=== PATIENT | female | born 1990 | race Caucasian/White ===

== ENCOUNTER 2018-04-29 18:05 | Emergency (ER) | payer OTHER ==
--- NOTE | 2018-04-29 18:32 | PDOC ---
Rapid Medical Evaluation Chief Complaint: Injury Time Seen by Provider: 04/29/18 18:30 Medical Evaluation: Allergies Allergy/AdvReac Type Severity Reaction Status Date / Time No Known Allergies Allergy Verified 01/01/12 18:21 04/29/18 18:31 I have performed a brief in-person evaluation of this patient. The patient presents with a chief complaint of: Right ankle pain s/p slip and fall downstairs Pertinent physical exam findings: ambulatory. No bony tenderness to foot/ankle/ knee I have ordered the following: xrays The patient will proceed to the ED for further evaluation. Discharge Disposition - Diagnosis Ankle pain, right - Referrals - Patient Instructions - Post Discharge Activity
[2018-04-29 18:40] VITALS: BP 102/57; PULSE 82; TEMP 98.6; BMI 24.8
--- NOTE | 2018-04-29 22:28 | PDOC ---
History of Present Illness - General Chief Complaint: Injury Stated Complaint: Injury Time Seen by Provider: 04/29/18 18:30 - History of Present Illness Initial Comments: 04/29/18 22:25 28-year-old female presents for right ankle pain after inversion type injury at work today. She points to the lateral aspect of the right ankle as the area of her discomfort. Past History - Past Medical History Allergies/Adverse Reactions: Allergies Allergy/AdvReac Type Severity Reaction Status Date / Time No Known Allergies Allergy Verified 01/01/12 18:21 Home Medications: Ambulatory Orders NK [No Known Home Medication] 04/29/18 Asthma: No Cancer: No Cardiac Disorders: No COPD: No Diabetes: No HTN: No Seizures: No Thyroid Disease: No - Immunization History Immunization Up to Date: No - Suicide/Smoking/Psychosocial Hx Smoking Status: No Smoking History: Never smoked Have you smoked in the past 12 months: No Number of Cigarettes Smoked Daily: 0 Information on smoking cessation initiated: No Hx Alcohol Use: No Drug/Substance Use Hx: No Hx Substance Use Treatment: No Review of Systems - Review of Systems Musculoskeletal: Yes: Joint Pain *Physical Exam - Vital Signs Last Vital Signs Temp Pulse Resp BP Pulse Ox 98.6 F 82 16 102/57 L 100 04/29/18 18:30 04/29/18 18:30 04/29/18 18:30 04/29/18 18:30 04/29/18 18:30 - Physical Exam Comments: 04/29/18 22:26 Mild ecchymosis about the anterior lateral aspect of the right ankle. No tenderness about the knee proximal fibula or along its distal coarse. Mild tenderness about the medial lateral malleolus ATFL navicular base of the fifth metatarsal which seems out of proportion to the examination. She is under to light touch. Decreased range of motion unable to tolerate stability testing. No gross sensorimotor deficits. She is neurovascularly intact. Moderate Sedation - Procedure Monitoring Vital Signs: Procedure Monitoring Vital Signs Temperature 98.6 F 04/29/18 18:30 Pulse Rate 82 04/29/18 18:30 Respiratory Rate 16 04/29/18 18:30 Blood Pressure 102/57 L 04/29/18 18:30 O2 Sat by Pulse Oximetry (%) 100 04/29/18 18:30 ED Treatment Course - ADDITIONAL ORDERS Additional order review: Laboratory Results 04/29/18 19:30 Urine HCG, Qual Negative Medical Decision Making - Medical Decision Making 04/29/18 22:26 No evidence of fracture trauma destructive process on x-ray today. *DC/Admit/Observation/Transfer Diagnosis at time of Disposition: Ankle pain, right - Discharge Dispostion Disposition: HOME Condition at time of disposition: Stable Decision to Admit order: No - Referrals Referrals: Scott Duenas DO [Staff Physician] - - Patient Instructions Printed Discharge Instructions: Ankle Sprain, DI for Ankle Sprain Additional Instructions: He may take Motrin as directed for pain. As well as swelling. Return to the emergency room should symptoms worsen or go unresolved follow-up with orthopedic surgery in one to 2 days for further evaluation and treatment options. - Post Discharge Activity
== END 2018-04-29 22:47 | disposition home or self-care (01) ==
LOC: JERFT 18:05
DX: M25.571 Pain in right ankle and joints of right foot (principal); X58.XXXA Exposure to other specified factors, initial encounter; Y93.89 Activity, other specified; Y92.89 Other specified places as the place of occurrence of the external cause; Y99.0 Civilian activity done for income or pay
CPT/HCPCS: 73610-TC-RT-FY; 73630-TC-RT-FY; 84703; 99281-25